=== PATIENT | female | born 1975 | race Caucasian/White ===

== ENCOUNTER 2016-10-06 18:32 | Emergency (ER) | payer OTHER ==
[~2016-10-06] VITALS: Ht 162.6 cm; Wt 81.5 kg
[~2016-10-06 18:32] MED LIST: ASPIR 8181 M1 PO; BENADRYL25 MG PO; CLONAZEPAM1 MG PO; COL-RITE100 M1 PO; DELTASONE20 M1 PO; DESYREL100 MG PO; DILAUDID2 MG PO; DITROPAN5 MG PO; FLEXERIL10 MG PO; GLUCOPHAGE1000 MG PO; JANUVIA25 MG PO; LEVEMIR FL100 UNIT/1 SC; MAALOX MAXIMUM355 ML PO; MEDROL DOSEPAK4 MG PO; METFORMIN HCL1000 MG PO; METOPROLOL PO; METOPROLOL TART25 MG PO; MONTELUKAST SOD10 MG PO; NAPROSYN500 MG PO; NORCO 5/3251 TABLET PO; OXYBUTYNIN CHLOR5 MG PO; PAMELOR25 MG PO; PEPCID20 MG PO; PROTONIX40 MG PO; SENNA8.6 MG PO; TIZANIDINE HCL4 MG PO; TOPAMAX100 MG PO; TOPAMAX50 MG PO; TRAMADOL HCL50 MG PO; VENTOLIN HFA18 GM IH; ZANTAC150 MG PO; ZOCOR40 MG PO; ZOFRAN4 MG PO
[2016-10-06 20:31] LABS: HEMATOCRIT 40.9 % (36.0-46.0); MCH 25.4 PG (29.0-34.0); MCHC 31.8 G/DL (30.0-36.0); MEAN PLAT.VOLUME 10.9 uM^3 (9.5-12.4); PLATELET COUNT 280 K/uL (156-360); RBC DIS.WIDTH-CV 14.8 % (11.8-14.6); RBC DIS.WIDTH-SD 43.4 % (39-53); RED BLOOD COUNT 5.11 M/uL (3.80-5.20); WHITE BLOOD COUNT 10.9 K/uL (4.1-10.2)
[2016-10-06 20:40] LABS: CHLORIDE 104 mEq/L (99-109); SODIUM 137 mEq/L (136-147)
[2016-10-06 20:42] LABS: GLUCOSE 104 mg/dL (70-99)
[2016-10-06 20:43] LABS: ANION GAP 10 MEQ/L (2-14)
[2016-10-06 20:46] LABS: GFR ESTIMATE (CALCULATED) > 59 mL/min/
[2016-10-06 20:47] LABS: UREA NITROGEN (BUN) 10 mg/dL (9-23)
[2016-10-06 20:54] LABS: ADD MIUA? YES; BILIRUBIN NEGATIVE; BLOOD NEGATIVE; COLOR YELLOW ((YELLOW)); GLUCOSE (STRIP) NEGATIVE; KETONES NEGATIVE; LEUKOCYTES TRACE; NITRITE NEGATIVE; PROTEIN (STRIP) 30; SPECIFIC GRAVITY 1.026 (1.000-1.030)
[2016-10-06] MEDS ORDERED: CEFDINIR300 MG PO (21:34)
[2016-10-06 21:39] LABS: BACTERIA NONE SEEN /HPF; EPITHELIAL CELLS 1+ /HPF; MUCUS TRACE /LPF; RED BLOOD CELLS 0-5 /HPF (0-5); UCUL ADDED? NO; WHITE BLOOD CELLS 0-5 /HPF (0-5)
[2016-10-06 22:13] VITALS: BP 113/78
== END 2016-10-06 22:13 | disposition home or self-care (01) ==
LOC: EME 18:32
PROVIDERS: Physician Assistant
DX: G43.109 Migraine with aura, not intractable, without status migrainosus (principal); J32.9 Chronic sinusitis, unspecified; S93.402A Sprain of unspecified ligament of left ankle, initial encounter; W19.XXXA Unspecified fall, initial encounter; E11.9 Type 2 diabetes mellitus without complications; J44.9 Chronic obstructive pulmonary disease, unspecified; E78.5 Hyperlipidemia, unspecified; I10 Essential (primary) hypertension; I25.2 Old myocardial infarction; R56.9 Unspecified convulsions; Z79.4 Long term (current) use of insulin; Z79.84 Long term (current) use of oral hypoglycemic drugs; Z79.82 Long term (current) use of aspirin; F17.200 Nicotine dependence, unspecified, uncomplicated
CPT/HCPCS: 70450; 73610; 80048; 81003; 85027; 99281; 99285; J1200; J1885; J7030

== ENCOUNTER 2016-10-24 13:46 | Emergency (ER) | payer OTHER ==
[~2016-10-24] VITALS: Ht 162.6 cm; Wt 81.0 kg
[~2016-10-24 13:46] MED LIST changes: +CEFDINIR300 MG PO
[2016-10-24 15:38] LABS: BILIRUBIN NEGATIVE; BLOOD NEGATIVE; COLOR YELLOW ((YELLOW)); GLUCOSE (STRIP) NEGATIVE; KETONES 5; LEUKOCYTES NEGATIVE; NITRITE NEGATIVE; PROTEIN (STRIP) NEGATIVE; SPECIFIC GRAVITY 1.021 (1.000-1.030); UROBILINOGEN 0.2 MG/DL (0.2-1.0)
[2016-10-24 15:42] LABS: CHLORIDE 107 mEq/L (99-109); SODIUM 137 mEq/L (136-147)
[2016-10-24 15:43] LABS: ADD MIUA? NO
[2016-10-24 15:44] LABS: GLUCOSE 149 mg/dL (70-99)
[2016-10-24 15:46] LABS: ANION GAP 9 MEQ/L (2-14)
[2016-10-24 15:48] LABS: GFR ESTIMATE (CALCULATED) > 59 mL/min/
[2016-10-24 15:49] LABS: UREA NITROGEN (BUN) 10 mg/dL (9-23)
[2016-10-24 15:57] LABS: QUANTITATIVE HCG < 4.0 MIU/ML
[2016-10-24] MEDS ORDERED: MOTRIN800 MG PO (16:40)
[2016-10-24] MEDS ORDERED: ANTIVERT25 MG PO (16:40)
[2016-10-24] MEDS ORDERED: PROMETHAZINE HC25 M1 PO (16:40)
[2016-10-24] MEDS ORDERED: FIORICET 50-301 EACH PO (16:40)
[2016-10-24] MEDS ORDERED: PHENERGAN25 MG PR (16:40)
[2016-10-24 17:06] VITALS: BP 122/69
== END 2016-10-24 17:13 | disposition home or self-care (01) ==
LOC: EME 13:46
PROVIDERS: Physician Assistant
DX: S09.90XA Unspecified injury of head, initial encounter (principal); S06.0X0A Concussion without loss of consciousness, initial encounter; S16.1XXA Strain of muscle, fascia and tendon at neck level, initial encounter; W10.8XXA Fall (on) (from) other stairs and steps, initial encounter; J45.909 Unspecified asthma, uncomplicated; J44.9 Chronic obstructive pulmonary disease, unspecified; E11.9 Type 2 diabetes mellitus without complications; E78.5 Hyperlipidemia, unspecified; I10 Essential (primary) hypertension; I25.2 Old myocardial infarction; Z79.82 Long term (current) use of aspirin; Z79.84 Long term (current) use of oral hypoglycemic drugs; F17.200 Nicotine dependence, unspecified, uncomplicated
CPT/HCPCS: 72040; 80048; 81003; 84702; 99281; 99283; J2550

== ENCOUNTER → 2017-01-05 | Outpatient (CLI) | payer OTHER ==
[~2017-01-05] MED LIST changes: +ANTIVERT25 MG PO; +FIORICET 50-301 EACH PO; +MOTRIN800 MG PO; +PHENERGAN25 MG PR; +PROMETHAZINE HC25 M1 PO
== END | disposition home or self-care (01) ==
LOC: NUC 06:47
DX: R10.11 Right upper quadrant pain (principal)
CPT/HCPCS: 78227; A9537; J2805